=== PATIENT | female | born 1975 | race Caucasian/White ===

== ENCOUNTER 2018-03-15 17:11 | Emergency (ER) | payer SELFPAY ==
[~2018-03-15] VITALS: Ht 167.6 cm; Wt 60.0 kg
[2018-03-15] MEDS ORDERED: ACET325T9 PO (17:24)
--- NOTE | 2018-03-15 17:57 | PHYS DOC ---
Past History Past Medical History: No Pertinent History Past Surgical History: , Tonsillectomy Smoking: Quit Less Than 1 Year Alcohol Use: Occasionally Drug Use: None Adult General Chief Complaint Chief Complaint: fever and back pain [facility] HPI 42-year-old female patient complaining of subjective fever since yesterday with low back pain with radiation to lower abdomen as a constant pain that getting worse with movement and urination. Patient complaining of mild urinary frequency and dysuria. She denies nausea, vomiting, vaginal bleeding or discharge. Patient rated her pain 3/10 and doesn't want to have pain medication. Review of Systems Review of Systems Constitutional: Reports fever or chills [] Eyes: Denies change in visual acuity, redness, or eye pain [] HENT: Denies nasal congestion or sore throat [] Respiratory: Denies cough or shortness of breath [] Cardiovascular: No additional information not addressed in HPI [] GI: Denies abdominal pain, nausea, vomiting, bloody stools or diarrhea [] : Denies dysuria or hematuria [] Musculoskeletal: Reports back pain , denies joint pain [] Integument: Denies rash or skin lesions [] Neurologic: Denies headache, focal weakness or sensory changes [] Endocrine: Denies polyuria or polydipsia [] All other systems were reviewed and found to be within normal limits, except as documented in this note. Allergies Allergies Allergies Coded Allergies Type Severity Reaction Last Updated Verified No Known Drug Allergies 03/15/18 No Physical Exam Physical Exam Constitutional: Well developed, well nourished, mild distress, non-toxic appearance, afebrile. [] HENT: Normocephalic, atraumatic, oropharynx moist, no oral exudates. [] Eyes: PERRLA, EOMI, conjunctiva normal, no discharge. [] Neck: Normal range of motion, no tenderness, supple, no stridor. [] Cardiovascular:Heart rate regular rhythm, no murmur [] Lungs & Thorax: Bilateral breath sounds clear to auscultation [] Abdomen: Bowel sounds normal, soft, no tenderness, no masses, no pulsatile masses. [] Skin: Warm, dry, no erythema, no rash. [] Back: No tenderness, no CVA tenderness. [] Extremities: No tenderness, no cyanosis, no clubbing, ROM intact, no edema. [] Neurologic: Alert and oriented X 3, normal motor function, normal sensory function, no focal deficits noted. [] Psychologic: Affect normal, judgement normal, mood normal. [] Current Patient Data Vital Signs Vital Signs Date Time Temp Pulse Resp B/P (MAP) Pulse Ox O2 Delivery O2 Flow Rate FiO2 03/15/18 17:15 97.9 99 18 98 Room Air EKG EKG [] Radiology/Procedures Radiology/Procedures [] Course & Med Decision Making Course & Med Decision Making Pertinent Labs reviewed. (See chart for details) Evaluation of patient in ER showed 42-year-old female patient with complaining of back pain and lower abdominal pain subjective fever patient did not have fever in ER. Patient did not have CVA tenderness or abdominal tenderness. Urine dip showed large leukocytes. Patient agreed to have an IM shot of Rocephin in ER. Plan discharge patient with diagnose of UTI and prescription for Cipro and Naprosyn. [] Dragon Disclaimer Dragon Disclaimer This electronic medical record was generated, in whole or in part, using a voice recognition dictation system. Departure Departure: Impression: Primary Impression: Urinary tract infection Disposition: HOME, SELF-CARE (at 1820) Condition: STABLE Referrals: PCP,NO (PCP) Patient Instructions: Urinary Tract Infection Additional Instructions: Drink plenty of liquids Follow-up with your primary care physician in 3-5 days Return to ER if not getting better Scripts Naproxen (NAPROSYN) 500 Mg Tablet 1 TAB PO BID PRN for PAIN, #20 TAB Prov: HERMINIA ALEJANDRO MD 03/15/18 Ciprofloxacin Hcl (CIPRO) 250 Mg Tablet 1 TAB PO BID, #14 TAB Prov: HERMINIA ALEJANDRO MD 03/15/18 HERMINIA ALEJANDRO MD Mar 15, 2018 17:57
[2018-03-15] MEDS ORDERED: cefTRIAXone IM 1 GM VIAL IM ONE (18:15)
[2018-03-15] MEDS ORDERED: NAPR-683 PO (18:18)
[2018-03-15] MEDS ORDERED: CIPR250T30 PO (18:18)
[2018-03-15 18:35] VITALS: BP 108/60
[2018-03-15 18:42] LABS: BILIRUBIN,URINE NEG (NEG); CLARITY,URINE CLOUDY; COLOR,URINE YELLOW
[2018-03-15 18:43] LABS: BACTERIA,URINE MOD /HPF (0-FEW); GLUCOSE,URINE NEG (NEG); NITRITE,URINE NEG (NEG); RBC,URINE OCC /HPF (0-2); UROBILINOGEN,URINE 2 mg/dL (0.2 mg/dL)
[2018-03-15 18:44] LABS: SQUAMOUS EPITHELIAL CELL,UR FEW /LPF
== END 2018-03-15 18:35 | disposition home or self-care (01) ==
LOC: ER 17:11
DX: N39.0 Urinary tract infection, site not specified (principal); Z87.891 Personal history of nicotine dependence; Z98.890 Other specified postprocedural states
CPT/HCPCS: 81001; 81025; 87086; 96372; 99284; J0696

== ENCOUNTER 2020-01-26 08:26 | Inpatient (IN) | payer SELFPAY ==
[~2020-01-26] VITALS: Ht 167.6 cm; Wt 60.0 kg
[~2020-01-26 08:26] MED LIST: ACET325T9 PO; CIPR250T30 PO; NAPR-683 PO
[2020-01-26] MEDS ORDERED: ALBUTEROL SULFATE 2.5 MG/3 ML NEBU. ONE (08:40)
[2020-01-26] MEDS ORDERED: IPRATROPIUM BROMIDE 0.5 MG/2.5 ML NEBU. NEB ONE (08:45)
[2020-01-26] MEDS ORDERED: ALBUTEROL SULFATE 2.5 MG/3 ML NEBU. NEB ONE (08:45)
[2020-01-26] MEDS ORDERED: methylPREDNISolone SOD SUCC PF 125 MG/2 ML VIAL. IV ONE (08:45)
--- NOTE | 2020-01-26 09:22 | RAD ---
PORTABLE CHEST 1V 01/26/2020 8:38 AM INDICATION: Shortness of air, asthma COMPARISON: None available TECHNIQUE: Portable frontal view of the chest is provided. FINDINGS: The cardiomediastinal silhouette is within normal limits. Lungs are clear. There are no significant pleural effusions. There is no pulmonary vascular congestion. No pneumothorax. No suspicious osseous abnormality. IMPRESSION: There is no acute cardiopulmonary process. Electronically signed by: Tanisha Hargrove MD (01/26/2020 9:19 AM) [facility]
--- NOTE | 2020-01-26 11:41 | PHYS DOC ---
Past History Past Medical History: Asthma Past Surgical History: , Tonsillectomy Smoking: Quit Less Than 1 Year Alcohol Use: None Drug Use: None General Adult EDM: Chief Complaint: ASTHMA HPI: HPI: Patient is a 44-year-old female who presents with complaint of cough, wheezing and shortness of breath that started this morning. Patient states that she has taken her inhaler as well as a DuoNeb at home without any relief. Patient states that symptoms had started early this morning and have progressively gotten worse. She denies any fever. Patient states that she also has a cough but is not productive. She states that symptoms are worsened with minimal exertion. [] Review of Systems: Review of Systems: Constitutional: Denies fever or chills Respiratory: Complains of cough and shortness of breath Cardiovascular: Denies chest pain or edema GI: Denies abdominal pain, nausea, vomiting, bloody stools or diarrhea Neurologic: Denies headache, focal weakness or sensory changes A full 10 point review of systems has been reviewed and is otherwise negative. Heart Score: Risk Factors: Risk Factors: DM, Current or recent (<one month) smoker, HTN, HLP, family history of CAD, obesity. Risk Scores: Score 0 - 3: 2.5% MACE over next 6 weeks - Discharge Home Score 4 - 6: 20.3% MACE over next 6 weeks - Admit for Clinical Observation Score 7 - 10: 72.7% MACE over next 6 weeks - Early Invasive Strategies Current Medications: Current Meds: Current Medications Medications (Trade) Dose Ordered Sig/Alejandro Start Time Stop Time Status Last Admin Dose Admin Albuterol Sulfate (Ventolin) 2.5 mg STK-MED ONCE 01/26/20 08:40 01/26/20 08:40 DC Ipratropium [place] (Atrovent) 0.5 mg 1X ONCE 01/26/20 08:45 01/26/20 08:56 DC 01/26/20 08:45 0.5 MG Methylprednisolone Sodium Succinate (SOLU-Medrol 125MG VIAL) 125 mg 1X ONCE 01/26/20 08:45 01/26/20 08:56 DC 01/26/20 08:45 125 MG Allergies: Allergies: Allergies Coded Allergies Type Severity Reaction Last Updated Verified No Known Drug Allergies 03/15/18 No Physical Exam: PE: Constitutional: Well developed, well nourished, in mild respiratory distress. [] HENT: Normocephalic, atraumatic, bilateral external ears normal, oropharynx moist, no oral exudates, nose normal. [] Eyes: PERRLA, EOMI, conjunctiva normal, no discharge. [] Neck: Normal range of motion, no tenderness, supple, no stridor. [] Cardiovascular: Regular rate and rhythm [] Lungs & Thorax: Diminished breath sounds are noted bilaterally with coarse inspiratory and expiratory wheezes to auscultation [] Abdomen: Bowel sounds normal, soft, no tenderness, no masses, no pulsatile masses. [] Skin: Warm, dry, no erythema, no rash. [] Extremities: No tenderness, no cyanosis, no clubbing, ROM intact, no edema. [] Neurologic: Alert and oriented X 3, no focal deficits noted. [] Current Patient Data: Vital Signs: Vital Signs Date Time Temp Pulse Resp B/P (MAP) Pulse Ox O2 Delivery O2 Flow Rate FiO2 01/26/20 10:51 108 20 116/80 (92) 98 01/26/20 09:51 Room Air 01/26/20 08:40 98.0 EKG: EKG: [] Radiology/Procedures: Radiology/Procedures: [] Impressions: PROCEDURE: PORTABLE CHEST 1V PORTABLE CHEST 1V 01/26/2020 8:38 AM INDICATION: Shortness of air, asthma COMPARISON: None available TECHNIQUE: Portable frontal view of the chest is provided. FINDINGS: The cardiomediastinal silhouette is within normal limits. Lungs are clear. There are no significant pleural effusions. There is no pulmonary vascular congestion. No pneumothorax. No suspicious osseous abnormality. IMPRESSION: There is no acute cardiopulmonary process. Electronically signed by: Tanisha Hargrove MD (01/26/2020 9:19 AM) [facility] Course & Med Decision Making: Course & Med Decision Making Pertinent Labs and Imaging studies reviewed. (See chart for details) [] Dragon Disclaimer: Dragon Disclaimer: This electronic medical record was generated, in whole or in part, using a voice recognition dictation system. Departure Departure: Impression: Primary Impression: Asthma exacerbation Qualified Codes: J45.901 - Unspecified asthma with (acute) exacerbation Additional Impression: Hypoxemia Disposition: ADMITTED INPATIENT Admitting Physician: Catracho Demarco Condition: IMPROVED Referrals: VIVIANE OAKLEY MD (PCP) Justification of Admission: Justification of Admission: Justification of Admission Dx: Yes Comments: Acute asthma exacerbation with hypoxemia, not responding to respiratory treatments TRINA SANDOVAL Jr. DO Jan 26, 2020 11:41
[2020-01-26 12:11] LABS: BASO % 0 % (0-3); EOS # 0.2 x10^3/uL (0.0-0.7); EOS % 2 % (0-3); HEMOGLOBIN 12.9 g/dL (12.0-15.5); LYMPH # 0.4 x10^3/uL (1.0-4.8); LYMPH % 4 % (24-48); MEAN CORPUSCULAR HEMOGLOBIN 30 pg (25-35); MEAN CORPUSCULAR HGB CONC 33 g/dL (31-37); MEAN CORPUSCULAR VOLUME 91 fL (79-100); MONO # 0.1 x10^3/uL (0.0-1.1); MONO % 1 % (0-9); NEUT % 93 % (31-73); PLATELET COUNT 336 x10^3/uL (140-400); RED BLOOD COUNT 4.29 x10^6/uL (3.50-5.40); RED CELL DISTRIBUTION WIDTH 14.4 % (11.5-14.5); WHITE BLOOD COUNT 10.7 x10^3/uL (4.0-11.0)
[2020-01-26] MEDS ORDERED: ACETAMINOPHEN 325 MG TABLET PO PRN (13:30)
[2020-01-26] MEDS ORDERED: IV NORMAL SALINE 1,000ML 1,000 ML IV ONE (13:30)
[2020-01-26] MEDS ORDERED: IPRATRPIUM/ALBUTEROL 0.5/2.5MG 3 ML NEBU. NEB ONE (13:45)
[2020-01-26 13:49] LABS: CREATININE 0.7 mg/dL (0.6-1.0); GFR 90.5; POTASSIUM 4.3 mmol/L (3.5-5.1)
[2020-01-26 13:56] LABS: ALBUMIN 3.4 g/dL (3.4-5.0); ALBUMIN/GLOBULIN RATIO 0.7 (1.0-1.7); TOTAL BILIRUBIN 0.4 mg/dL (0.2-1.0)
[2020-01-26 15:05] VITALS: BP 113/77
--- NOTE | 2020-01-26 15:06 | NUR ---
Pt admitted for asthma exacerbation and hypoxia. Pt arrived on unit via gurney accompanied by ems. Pt head to toe completed, medical and surgical hx taken, hx vitals taken, belongings checked. Pt given unit routines.
[2020-01-26] MEDS ORDERED: IPRATRPIUM/ALBUTEROL 0.5/2.5MG 3 ML NEBU. NEB SCH (16:00)
[2020-01-26] MEDS ORDERED: MONT10TA11 PO (16:10)
[2020-01-26] MEDS ORDERED: CITA20TA6 PO (16:10)
[2020-01-26] MEDS ORDERED: ALBU2.5V8 INH (16:10)
[2020-01-26] MEDS ORDERED: BUPR8TAB SL (16:10)
[2020-01-26] MEDS ORDERED: ALBU2.5V5 NEB (16:10)
[2020-01-26] MEDS ORDERED: ALPR0.5T6 PO (16:10)
[2020-01-26] MEDS ORDERED: IPRA3AMP29 NEB (17:44)
[2020-01-26] MEDS ORDERED: METH40VI IJ (17:44)
[2020-01-26] MEDS ORDERED: BUDE0.5A3 NEB (17:44)
[2020-01-26] MEDS ORDERED: GUAI600T47 PO (17:44)
[2020-01-26 19:25] VITALS: BP 123/81
[2020-01-26] MEDS: IPRATRPIUM/ALBUTEROL 0.5/2.5MG 3 ML NEBU. NEB SCH (20:16)
[2020-01-26] MEDS: BUDESONIDE 0.5 MG/2 ML NEBU NEB SCH (20:16)
[2020-01-26] MEDS: methylPREDNISolone SOD SUCC PF 125 MG/2 ML VIAL. IV SCH (20:47)
[2020-01-26] MEDS: ALPRAZolam 0.5 MG TABLET PO SCH (20:48)
[2020-01-26] MEDS: NON FORMULARY ITEM (Buprenorphine Hcl 8 MG) SL SCH (21:00)
--- NOTE | 2020-01-26 21:12 | NUR ---
PT BROUGHT MED FROM HOME FOR USE IN HOSPITAL, BUPRENORPHINE 8MG TAB--PER ELI BUSH PHARMACIST, GIVE DOSE TONIGHT AND DOCUMENT IN EMAR, MED WILL BE VERIFIED BY [facility] PHARMACIST IN AM.
[2020-01-26 23:54] VITALS: BP 110/67
[2020-01-27] MEDS: IPRATRPIUM/ALBUTEROL 0.5/2.5MG 3 ML NEBU. NEB SCH ×2 (05:15→11:32)
[2020-01-27] MEDS: methylPREDNISolone SOD SUCC PF 125 MG/2 ML VIAL. IV SCH ×2 (06:22→13:27)
[2020-01-27 06:41] LABS: CALCIUM 8.7 mg/dL (8.5-10.1); CREATININE 0.6 mg/dL (0.6-1.0); GFR 108.1; POTASSIUM 4.4 mmol/L (3.5-5.1)
[2020-01-27] MEDS: ALPRAZolam 0.5 MG TABLET PO SCH ×2 (07:56→13:26)
[2020-01-27 08:00] VITALS: BP 105/65
[2020-01-27] MEDS ORDERED: CITALOPRAM 20 MG TABLET. PO SCH (09:00)
[2020-01-27] MEDS: NON FORMULARY ITEM (Buprenorphine Hcl 8 MG) SL SCH (09:00)
[2020-01-27] MEDS: BUDESONIDE 0.5 MG/2 ML NEBU NEB SCH (11:33)
[2020-01-27 12:01] VITALS: BP 105/62
--- NOTE | 2020-01-27 13:58 | NUR ---
NURSING NOTE DISCHARGE PT. DISCHARGED HOME VIA WHEELCHAIR ACCOMPANIED BY SELF. WRITTEN AND VERBAL INSTRUCTIONS GIVEN TO PT. SCRIPTS GIVEN TO PT. NO COMPLICATIONS CYRUS FRANCO
--- NOTE | 2020-01-27 15:10 | SSS ---
ADMIT DATE: HISTORY OF PRESENT ILLNESS: The patient is a 44-year-old female patient who presented to the Emergency Room with a complaint of cough, wheezing and shortness of breath that started yesterday morning, as she stated that she has been taking her inhaler as well as her DuoNeb at home without any relief. She has symptoms, had started yesterday morning, had progressively gotten worse. She denies any fever. She only has cough that is nonproductive. She was evaluated in the Emergency Room and was found to have inspiratory and expiratory wheezes. She has had continuous treatment by nebulizer in the Emergency Room without much improvement. Therefore, she was started on IV Solu-Medrol and was admitted for further evaluation and treatment. Her lab work showed no evidence of leukocytosis. Her chemistry showed she has hyperglycemia, although it is obviously nonfasting and she was admitted and continued on all her medication as well as methylprednisolone, budesonide and citalopram and did actually very well. By the time I saw her this afternoon, she was resting slightly propped up in bed, in no apparent distress. She denied any chest pain or shortness of breath. She was able to finish her sentence without difficulty. She was not using any accessory muscles and the patient expressed her desire to be discharged home and wanted to continue on a tapering course of steroids. PAST MEDICAL HISTORY: Significant for bronchial asthma. She apparently is an ex-smoker also. PAST SURGICAL HISTORY: Significant for , tonsillectomy. FAMILY HISTORY: Apparently noncontributory. SOCIAL HISTORY: She is an ex-smoker, quit a year ago. She does not drink alcohol or use any recreational drugs. ALLERGIES: She has no known drug allergies. MEDICATIONS: She is currently on following medications: She is on albuterol sulfate for ProAir 1 inhalation every 4 hours as needed, albuterol sulfate 2.5 mg 3 mL by nebulizer 4 times a day. She is on buprenorphine 8 mg sublingually 3 times a day, citalopram hydrobromide 20 mg once a day, alprazolam 0.5 mg 3 times a day, montelukast 10 mg at bedtime. REVIEW OF SYSTEMS: As per history of present illness. PHYSICAL EXAMINATION: GENERAL: On arrival to the Emergency Room, she was a well-developed, well-nourished female, in mild respiratory distress. VITAL SIGNS: Her heart rate on arrival was 103, blood pressure was 111/65, temperature was 98, respiratory rate 20, and oxygen saturation was 93% on room air. HEAD, EYES, EARS, NOSE AND THROAT: Showed normocephalic, atraumatic. NECK: Supple. HEART: Showed normal first and second heart sounds. No gallop, rub or murmur. CHEST: Shows central trachea, equal bilateral chest expansion air entry, very few rhonchi, mostly anterior. I could not really appreciate any rhonchi or crepitation posteriorly. ABDOMEN: Scaphoid, soft, nontender. NEUROLOGIC: She was grossly intact. LABORATORY DATA: On admission showed a white cell count of 10,700, hemoglobin 13, hematocrit 39, MCV 91, and platelet count 336,000. Her chemistry showed a serum sodium 136, potassium 4.3, chloride 101, bicarbonate 29, anion gap of 6, BUN 11, creatinine was 0.7, estimated GFR was 90 mL per minute. Her glucose 166, calcium was 9. Total bilirubin, AST, ALT, alkaline phosphatase were normal. Total protein was 8, albumin was 3.4. The patient was admitted and was continued on her DuoNeb every 4 hours while awake, Pulmicort 0.5 mg twice a day, methylprednisone 60 mg IV q. 8 hourly. She continues on Mucinex 600 mg twice a day, alprazolam 0.5 mg 3 times a day, buprenorphine 8 mg 3 times a day and citalopram hydrobromide for Celexa 20 mg once a day. The patient did actually very well. When I saw her this afternoon, she was sitting, slightly propped up in bed, definitely in no apparent distress. No pallor, jaundice, cyanosis, or thyromegaly. No jugular venous distension. No lower limb edema. Her heart rate was 96, blood pressure was 105/65, temperature was 98, respiratory rate was 18 and oxygen saturation was 96% on room air. Her lab work this morning showed a serum sodium 134, potassium 4.4, chloride 101, bicarbonate 25, anion gap of 8, BUN 11, creatinine was 0.8, estimated GFR was 108 mL per minute. Her glucose 187, calcium was 8.7. ASSESSMENT AND PLAN: Acute asthma exacerbation, acute hypoxic respiratory failure, chronic pain syndrome. The patient was discharged home to continue on her Singulair 10 mg at bedtime, citalopram hydrobromide 20 mg once a day, buprenorphine 8 mg 3 times a day, alprazolam 0.5 mg 3 times a day, albuterol sulfate by nebulizer 2.5 mg 3 mL by nebulizer 4 times a day and ProAir inhaler 1 puff every 4 hours as needed. I also discharged on a tapering course of steroids. FINAL DISCHARGE DIAGNOSES: Acute asthma exacerbation, acute hypoxic respiratory failure. MADAN FLORENTINO MD DR: MANDI/aly JOB#: [id number] / [id number]
== END 2020-01-27 14:01 | disposition home or self-care (01) | DRG 189 ==
LOC: ER 08:26 → 1 SOUTH 13:22
PROVIDERS: ADMIT Internal Medicine; ATTEND Internal Medicine
DX: J96.01 Acute respiratory failure with hypoxia (principal); J45.901 Unspecified asthma with (acute) exacerbation; G89.4 Chronic pain syndrome; Z79.899 Other long term (current) drug therapy; Z87.891 Personal history of nicotine dependence; R73.9 Hyperglycemia, unspecified; Z98.891 History of uterine scar from previous surgery
CPT/HCPCS: 36415; 71045; 80048; 80053; 85025; 94640; 96361; 96374; J2930; J7644; 99285-25; J7030; J7613